=== PATIENT | male | born 1990 | race Hispanic/Latino ===

== ENCOUNTER 2023-06-02 18:36 | Emergency (ER) | payer OTHER ==
[~2023-06-02] VITALS: Ht 162.6 cm; Wt 49.9 kg
[2023-06-02] MEDS: FAMOTIDINE 20MG TAB PO ONE (19:03)
[2023-06-02] MEDS: DEXAMETHASONE SOD PHOSPHATE 4 MG/ML 1ML VIAL IM ONE (19:03)
[2023-06-02] MEDS: DiphenhydrAMINE HCL 50 MG/ML VIAL IM ONE (19:03)
[2023-06-02 19:13] VITALS: BP 154/97; PULSE 107; RESP 18; O2SAT 98
[2023-06-02] MEDS ORDERED: DIPH50 PO (19:51)
[2023-06-02] MEDS ORDERED: METH4TAB3 PO (19:51)
== END 2023-06-02 19:58 | disposition home or self-care (01) ==
LOC: EDH 18:36
DX: L50.0 Allergic urticaria (principal)
CPT/HCPCS: 99284; 96372 ×2; J1100; J1200

== ENCOUNTER → 2023-06-02 | Emergency (ER) | payer OTHER ==
[~2023-06-02] MED LIST: DIPH50 PO; METH4TAB3 PO
== END ==
LOC: EDH 21:43
DX: R21 Rash and other nonspecific skin eruption (principal); Z53.21 Procedure and treatment not carried out due to patient leaving prior to being seen by health care provider